=== PATIENT | female | born 1990 | race Caucasian/White ===

== ENCOUNTER 2018-08-20 11:47 | Outpatient (REF) | payer OTHER, SELFPAY ==
[2018-08-27 09:35] LABS: Specimen Description URINE
[2018-08-27 09:36] LABS: Chlamydia Result Negative; GC Result Negative
== END 2018-08-20 12:07 ==
LOC: LBN 11:47
PROVIDERS: PCP Nurse Practitioner Family; Visit Provider Nurse Practitioner Family
DX: Z11.3 Encounter for screening for infections with a predominantly sexual mode of transmission (principal)
CPT/HCPCS: 87491; 87591

== ENCOUNTER 2018-08-20 12:01 | Outpatient (CLI) | payer OTHER, SELFPAY ==
[2018-08-21 10:04] LABS: Hepatitis C Ab w Rflx HCV PCR Negative (NEGAT)
[2018-08-21 10:20] LABS: Hepatitis B Surface Ag Negative (NEGAT)
[2018-08-21 10:27] LABS: HIV-1/2 Ag & Ab Screen Negative (NEGAT)
[2018-08-21 11:49] LABS: Syphilis Serology (RPR) Negative (Negative)
== END 2018-08-20 12:21 ==
PROVIDERS: PCP Nurse Practitioner Family; Visit Provider Nurse Practitioner Family
DX: Z11.3 Encounter for screening for infections with a predominantly sexual mode of transmission (principal); Z11.4 Encounter for screening for human immunodeficiency virus [HIV]; Z11.59 Encounter for screening for other viral diseases; Z01.84 Encounter for antibody response examination
CPT/HCPCS: 36415; 86803; 87340; 87389; 87491; 87591; 86592

== ENCOUNTER 2018-10-31 16:26 | Outpatient (REF) | payer OTHER, SELFPAY ==
--- NOTE | 2018-10-31 15:30 | PAPFT_PTH ---
PATIENT: NEL QUIROS LOC: [facility] U#:[id number] AGE/SX: 28/F ROOM: RE10/31/[address]: Nisha Duran MD : 1990 BED: DIS: 10/31/2018 SPEC #: [id number] RECD: 10/31/18 17:51 STATUS: HARDY REQ #: [id number] JULIO CESAR: 10/31/18 15:[address]: Nisha Duran DEPT: [facility] Cytology RECD BY: Colleen Sarmiento ENTERED: 10/31/18 17:51 SP TYPE: PAPFT OTHR DR: Maliha Julien Tissues: 1 - CX/ENDOCX FOR PAP SMEARS Procedures: PAP THIN PREP/[facility] Screening Comments: [id number]
[2018-11-02 14:30] LABS: Chlamydia Result Negative; GC Result Negative; Specimen Description CERVIX
== END 2018-10-31 16:46 ==
LOC: LBN 16:26
PROVIDERS: PCP Nurse Practitioner Family; Visit Provider Obstetrics & Gynecology
DX: Z11.3 Encounter for screening for infections with a predominantly sexual mode of transmission (principal); Z12.4 Encounter for screening for malignant neoplasm of cervix; A64 Unspecified sexually transmitted disease
CPT/HCPCS: 87491; 87591; 88142